=== PATIENT | male | born 1970 | race Caucasian/White ===

== ENCOUNTER 2021-10-03 06:39 | Emergency (ER) | payer OTHER ==
[~2021-10-03] VITALS: Ht 165.1 cm; Wt 81.6 kg
[2021-10-03] MEDS ORDERED: BUSPIRONE HCL10 MG PO (07:13)
[2021-10-03] MEDS ORDERED: BUSPIRONE HCL15 MG PO (07:13)
[2021-10-03] MEDS ORDERED: LISINOPRIL5 MG PO (07:13)
[2021-10-03] MEDS ORDERED: VISTARIL25 MG PO (10:07)
== END 2021-10-03 10:16 | disposition home or self-care (01) ==
LOC: ER 06:39
DX: R07.89 Other chest pain (principal); F41.9 Anxiety disorder, unspecified